=== PATIENT | male | born 1950 | race Caucasian/White ===

== ENCOUNTER 2016-10-30 16:05 | Emergency (ER) | payer BC ==
[2016-10-30 16:52] LABS: BASO % 0.4 % (0.0-1.0); EOS # 0.2 K/mm3 (0.0-0.50); EOS % 3.2 % (0.0-3.0); LARGE UNSTAINED CELL # 0.1 K/mm3 (0.0-0.4); LYMPH # 1.7 K/mm3 (1.5-4.5); LYMPH % 26.7 % (24.0-44.0); MEAN CORPUSCULAR HEMOGLOBIN 31.5 pg (27.0-33.0); MEAN CORPUSCULAR HGB CONC 33.7 g/dl (32.0-36.5); MEAN CORPUSCULAR VOLUME 93.6 fl (80.0-96.0); MONO # 0.4 K/mm3 (0.0-0.8); MONO % 6.7 % (0.0-5.0); NEUTROPHILS # 3.5 K/mm3 (1.8-7.7); NEUTROPHILS % 60.9 % (36.0-66.0); PLATELET COUNT, AUTOMATED 235 k/mm3 (150-450); RED CELL DISTRIBUTION WIDTH 13.5 % (11.5-14.5); WHITE BLOOD COUNT 5.8 K/mm3 (4.0-10.0)
[2016-10-30 17:04] LABS: ALBUMIN 4.3 GM/DL (3.2-5.2); ALBUMIN/GLOBULIN RATIO 1.54 (1.00-1.93); ALKALINE PHOSPHATASE 75 U/L (45-117); ALT/SGPT 41 U/L (12-78); ANION GAP 6 MEQ/L (8-16); AST/SGOT 23 U/L (15-37); BILIRUBIN,DIRECT 0.1 MG/DL (0.0-0.2); BILIRUBIN,TOTAL 0.5 MG/DL (0.2-1.0); BLOOD UREA NITROGEN 13 MG/DL (7-18); CALCIUM LEVEL 8.6 MG/DL (8.8-10.2); CARBON DIOXIDE LEVEL 29 MEQ/L (21-32); CHLORIDE LEVEL 108 MEQ/L (98-107); CREATININE FOR GFR 1.14 MG/DL (0.70-1.30); FREE T4 1.03 NG/DL (0.76-1.46); GLOMERULAR FILTRATION RATE > 60.0 (>49); GLUCOSE, FASTING 80 MG/DL (80-110); MAGNESIUM LEVEL 2.3 MG/DL (1.8-2.4); SODIUM LEVEL 143 MEQ/L (136-145); TOTAL PROTEIN 7.1 GM/DL (6.4-8.2)
--- NOTE | 2016-10-30 17:52 | EDDOCDS ---
Physician Documentation [facility] Name: Phong Luevano Age: 66 yrs Sex: Male : 1950 Arrival Date: 10/30/2016 Time: 16:05 Bed 11 Private MD: NO PRIMARY PHYSICIAN, . Disposition: 10/30 17:41 Critical Care: Critical care not applicable. pc Disposition: 10/30/16 17:43 Patient has left against medical advice. Impression: Palpitations, Atrial premature depolarization. - Patients states they are going to Home/Self Care. - Condition is Unchanged. - Discharge Instructions: Palpitations, AMA. Medication Reconciliation, Local Pharmacy Hours form. Follow up: Private Physician; When: In [place]; Reason: Recheck today's complaints, Continuance of care. - Problem is new. - Symptoms are unchanged. HPI: 16:40 This 66 yrs old Male presents to ER via Walkin/Carried/Asstd with complaints of pc Irregular Pulse. 16:40 The history is obtained from the patient. He has been having "a funny feeling" for 3 pc days. He says his BP was up at a local pharmacy and he as been checking at home, despite not having a history of HTN. He denies chest pain but says he feels a skipped beat at times. He says he had similar complaints 5 years ago and ended up with stents. He is a very vague historian and it is very difficult to get a succinct answer to any question. 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 He drinks 4-5 cups of coffee daily and drinks 2+ glasses of wine nightly. At their worst, the symptoms were mild. In the emergency department, the symptoms are mild. The patient has experienced a previous episode, approximately 5 years ago. The patient has not recently seen a physician. Historical: - Allergies: No known drug Allergies; - Home Meds: 1. atorvastatin oral Unknown oral 2. aspirin 81 mg Oral tab 1 tab once daily - PMHx: Hypercholesterolemia; CAD; - PSHx: Cardiac stents; - The history from nurses notes was reviewed: and elements of the historical information I have obtained differs from that reported to nursing. - Social history: Smoking status: Patient states was never smoker of tobacco. No barriers to communication noted, The patient speaks fluent Vietnamese, Speaks appropriately for age. - Family history: Not pertinent. - : The pt / caregiver states he / she is not on anticoagulants. Home medication list is obtained from the patient. - Hospitalizations: : No recent hospitalization is reported. - Exposure Risk Screening:: None identified. - Immunization history:: All immunizations up-to-date. - Social history:: the patient is a non-smoker, the patient drinks alcohol. ROS: 16:46 All systems are negative except as listed. pc Exam: 16:46 General Appearance: no acute distress, alert. pc 16:46 EENT: normal eye inspection, ears, nose and throat normal, pharynx normal, mucous membranes moist 16:46 Neck: The exam reveals no acute abnormalities. ROM is normal and painless. No nuchal rigidity is noted.. 16:46 Respiratory: no respiratory distress, normal breath sounds. 16:46 CVS: regular pulse rate, regular rhythm, normal S1 and S2, no murmurs, strong peripheral pulses, occasional ectopic beat . 16:46 Abdomen: soft, non-tender, no organomegaly, normal bowel sounds. 16:46 Back: normal inspection. 16:46 Skin: skin color is normal, warm, dry. 16:46 Extremities: The extremities have a grossly normal appearance, are non-tender, without acute ROM abnormalities, no pedal edema. 16:46 Neuro: oriented x 3, cranial nerves normal as tested, no motor deficits, no sensory deficits. 16:46 Psych: normal mood. Vital Signs: 16:07 BP 149 / 73; Pulse 61; Resp 18; Pulse Ox 98% on R/A; Weight 102.06 kg / 225 lbs (R); dem1 Height 6 ft. 0 in. (182.88 cm) (R); 16:15 BP 137 / 86 (auto/); pml 16:18 Pulse 60 MON; Pulse Ox 97% ; pml 16:32 Pulse 58 MON; Pulse Ox 96% ; pml 16:32 BP 123 / 81 (auto/); pml 16:47 Pulse 58 MON; Pulse Ox 95% ; pml 16:47 BP 113 / 75 (auto/); pml 17:17 Pulse 60 MON; Pulse Ox 94% ; pml 17:17 BP 114 / 78 (auto/); pml 17:19 Temp 97.4(O); pml 17:32 Pulse 66 MON; Pulse Ox 95% ; pml 17:32 BP 113 / 76 (auto/); pml 17:51 BP 118 / 83; Pulse 67; Resp 18; Temp 97.4; Pulse Ox 97% on R/A; pml 16:07 Body Mass Index 30.52 (102.06 kg, 182.88 cm) dem1 MDM: 16:13 ECG WITH READING ER PHYS+CARDIAG ordered. EDMS 16:40 Financial Accountant/Pulse Ox/q 30 min VS ordered. pc 16:40 IV Saline Lock ordered. pc 16:40 Rhythm Strip to chart ordered. pc 16:41 Basic Metabolic Profile Ordered. EDMS 16:41 CBC with Diff Ordered. EDMS 16:41 Cardiac Injury Profile Ordered. EDMS 16:41 Troponin Ordered. EDMS 16:41 Magnesium Level Ordered. EDMS 16:41 TSH with Free T4 Ordered. EDMS 16:41 Liver Profile Ordered. EDMS 16:43 portable chest Ordered. EDMS 16:46 Differential Diagnosis: palpitations with PACs noted on monitor, Hx of CAD. Plan: labs, pc EKG, CXR. 16:49 Test interpretation: EKG. pc 17:06 Financial registration complete. zo 17:06 [facility] Payment Agreement was scanned into [employer] and attached to record. zo 17:17 Basic Metabolic Profile Reviewed. pc 17:17 CBC with Diff Reviewed. pc 17:17 Cardiac Injury Profile Reviewed. pc 17:17 Troponin Reviewed. pc 17:17 Magnesium Level Reviewed. pc 17:17 TSH with Free T4 Reviewed. pc 17:17 Liver Profile Reviewed. pc 17:36 Redraw CIP &Troponin (put time in details section) ordered. pc 17:36 Repeat EKG (put time details section) ordered. pc 17:41 Data reviewed: old medical records, vital signs, nurses notes, EKG(s), lab test pc results, all radiology studies and available results. Test interpretation: LAB - all labs as ordered have been reviewed, interpreted and considered in the overall management of the clinical presentation; X-RAY - interpreted by Radiologist and personally reviewed, 1 view chest chronic obstructive pulmonary disease pattern. The patient has been re-examined and re-evaluated. There is no appreciated change of the patient's symptoms at this time, since he left AMA. Disposition: The risks (severe disability/impairment and/or ) and benefits (continued evaluation/treatment of potentially life threatening illness) were explained in detail to the pt/parent/guardian. There is no evidence or suspicion of mental impairment due to drugs, alcohol, brain injury, stroke, dementia, mental delay or medical/psychiatric illness and the pt. is not a minor. The pt. demonstrates capacity/understanding: chose to sign out AMA. EC:49 Rate is 57 beats/min. Rhythm is regular, Sinus bradycardia with 1st degree heart block. pc QRS [place] is Normal. CA interval is prolonged at 211 msec. QRS interval is normal. QT interval is normal. No Q waves. T waves are Inverted in lead III. ST Segment is elevated in leads V2, V3, <1mm. Clinical impression: Sinus bradycardia, Nonspecific ST-T changes, and 1st degree heart block. Signatures: Dispatcher [employer] EDMS Benjamín Barney MD MD pc Kim-Ashcraft, Connie, RN RN ck1 Emmy White Paulina, RN RN pml The chart was reviewed and I authenticate all verbal orders and agree with the evaluation and treatment provided.Corrections: (The following items were deleted from the chart) 16:46 16:40 The history from nurses notes was reviewed and I agree with what is documented. pcpc Attachments: 17:06 [facility] Payment Agreement zo MTDD
--- NOTE | 2016-10-30 17:53 | EDDOCDS ---
Nurse's Notes [facility] Name: Phong Luevano Age: 66 yrs Sex: Male : 1950 Arrival Date: 10/30/2016 Time: 16:05 Bed 11 Private MD: NO PRIMARY PHYSICIAN, . Diagnosis: Palpitations;Atrial premature depolarization Presentation: 10/30 16:08 Presenting complaint: Patient states: Palpitations over the past few days. Denies chest ck1 pain. "I was advised to come in for an EKG by my Doctor friend". Adult Sepsis Screening: The patient does not have new or worsening altered mentation. Patient's respiratory rate is less than 22. Systolic blood pressure is greater than 100. Patient has a qSOFA score of 0- Negative Sepsis Screen. Suicide/Homicide risk assessment- the patient denies having any suicidal and/or homicidal ideations and does not present with any other emotional, behavioral or mental health complaints. 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 Transition of care: patient was not received from another setting of care. 16:08 Acuity: GARCIA Level 3 ck1 16:08 Method Of Arrival: Walkin/Carried/Asstd ck1 16:13 Red Flag criteria, patient assessed and taken directly to a bed. ck1 Triage Assessment: 16:10 General: Appears in no apparent distress, comfortable, Behavior is appropriate for age, ck1 cooperative. Pain: Denies pain. Neurological: Level of Consciousness is awake, alert, obeys commands, Oriented to person, place, time. Cardiovascular: Chest pain is denied. Respiratory: Respiratory effort is unlabored, Respiratory pattern is regular, symmetrical, Denies shortness of breath. GI: Denies nausea, vomiting. Derm: Skin is intact, is healthy with good turgor, Skin is pink, warm & dry. Historical: - Allergies: No known drug Allergies; - Home Meds: 1. atorvastatin oral Unknown oral 2. aspirin 81 mg Oral tab 1 tab once daily - PMHx: Hypercholesterolemia; CAD; - PSHx: Cardiac stents; - The history from nurses notes was reviewed: and elements of the historical information I have obtained differs from that reported to nursing. - Social history: Smoking status: Patient states was never smoker of tobacco. No barriers to communication noted, The patient speaks fluent Setswana, Speaks appropriately for age. - Family history: Not pertinent. - : The pt / caregiver states he / she is not on anticoagulants. Home medication list is obtained from the patient. - Hospitalizations: : No recent hospitalization is reported. - Exposure Risk Screening:: None identified. - Immunization history:: All immunizations up-to-date. - Social history:: the patient is a non-smoker, the patient drinks alcohol. Screenin:24 Screening information is obtained from the patient. Fall risk: No risks identified. pml Assistance ADL's: requires no assistance with activities of daily living. Abuse/DV Screen: The patient / caregiver reports he/she is: not in a situation that causes fear, pain or injury. Nutritional screening: No deficits noted. Advance Directives: Currently, there is no health care proxy. home support is adequate. Assessment: 16:24 General: Appears in no apparent distress, comfortable, Behavior is appropriate for age, pml cooperative. Pain: Location: chest Pain currently is 1 out of 10 on a pain scale. Quality of pain is described as "twinge". Neurological: Level of Consciousness is awake, alert, Oriented to person, place, time. Cardiovascular: Capillary refill < 3 seconds Rhythm is sinus rhythm No ectopy. Cardiovascular: Chest pain began 3-4 days. Respiratory: Airway is patent Respiratory effort is even, unlabored. Respiratory: Denies shortness of breath. GI: Abdomen is non- distended obese. Derm: Skin is pink, warm & dry. 17:49 General: Appears in no apparent distress, Behavior is appropriate for age, cooperative. pml Pain: Location: chest Pain currently is 1 out of 10 on a pain scale. Neurological: Level of Consciousness is awake, alert, Oriented to person, place, time. Cardiovascular: Capillary refill < 3 seconds Rhythm is sinus rhythm No ectopy. Derm: Skin is pink, warm & dry. Vital Signs: 16:07 BP 149 / 73; Pulse 61; Resp 18; Pulse Ox 98% on R/A; Weight 102.06 kg (R); Height 6 ft. dem1 0 in. (182.88 cm) (R); 16:15 BP 137 / 86 (auto/); pml 16:18 Pulse 60 MON; Pulse Ox 97% ; pml 16:32 Pulse 58 MON; Pulse Ox 96% ; pml 16:32 BP 123 / 81 (auto/); pml 16:47 Pulse 58 MON; Pulse Ox 95% ; pml 16:47 BP 113 / 75 (auto/); pml 17:17 Pulse 60 MON; Pulse Ox 94% ; pml 17:17 BP 114 / 78 (auto/); pml 17:19 Temp 97.4(O); pml 17:32 Pulse 66 MON; Pulse Ox 95% ; pml 17:32 BP 113 / 76 (auto/); pml 17:51 BP 118 / 83; Pulse 67; Resp 18; Temp 97.4; Pulse Ox 97% on R/A; pml 16:07 Body Mass Index 30.52 (102.06 kg, 182.88 cm) [facility] Vitals: 16:07 Log In Time: October 30, 2016 at 16:04. RN notified that patient meets [place] [facility] criteria. ED Course: 16:06 Patient visited by Raphael Luz. dem1 16:06 NO PRIMARY PHYSICIAN, . is Private Physician. dem1 16:06 Patient moved to Waiting dem1 16:08 Patient moved to Pre RCE dem1 16:09 Triage Initiated ck1 16:10 Adriana Reyes,RN is Primary Nurse. ck1 16:10 Patient moved to 11 ck1 16:15 Benjamín Barney MD is Attending Physician. pc 16:15 Patient visited by Benjamín Barney MD. pc 16:24 The patient / caregiver is instructed regarding the plan of care and ED course. Patient amber has correct armband on for positive identification. Placed in gown. Bed in low position. Call light in reach. Side rails up X2. residential director on. Pulse ox on. NIBP on. 16:24 Inserted peripheral IV: 18gauge IV in right antecubital area and blood collected. pml Patient tolerated the procedure well. 16:30 EKG done. (by ED staff). Reviewed by Benjamín Barney MD. jrd 16:31 Patient visited by Rory Stack PCA. jrd 17:05 Patient name changed from Phong\\S\\\\S\\Luevano\\S\\ to Phong\\S\\ \\S\\Luevano. EDMS 17:06 [facility] Payment Agreement was scanned into [employer] and attached to record. zo 17:20 Patient visited by Adriana Reyes RN. pml 17:51 Discontinued lock intact, bleeding controlled, pressure dressing applied, No pml redness/swelling at site. No procedures done that require assistance. Order Results: Lab Order: Basic Metabolic Profile; SPEC'M 10/30/16 16:22 Test: GLUCOSE, FASTING; Value: 80; Range: 80-110; Units: MG/DL; Status: F Test: BLOOD UREA NITROGEN; Value: 13; Range: 7-18; Units: MG/DL; Status: F Test: CREATININE FOR GFR; Value: 1.14; Range: 0.70-1.30; Units: MG/DL; Status: F Test: GLOMERULAR FILTRATION RATE; Value: > 60.0; Range: >49; Status: F Test: SODIUM LEVEL; Value: 143; Range: 136-145; Units: MEQ/L; Status: F Test: POTASSIUM SERUM; Value: 4.0; Range: 3.5-5.1; Units: MEQ/L; Status: F Test: CHLORIDE LEVEL; Value: 108; Range: 98-107; Abnormal: Above high normal; Units: MEQ/L; Status: F Test: CARBON DIOXIDE LEVEL; Value: 29; Range: 21-32; Units: MEQ/L; Status: F Test: ANION GAP; Value: 6; Range: 8-16; Abnormal: Below low normal; Units: MEQ/L; Status: F Test: CALCIUM LEVEL; Value: 8.6; Range: 8.8-10.2; Abnormal: Below low normal; Units: MG/DL; Status: F Test Note: ; Units are mL/min/1.73 m2 Chronic Kidney Disease Staging per NKF: Stage I & II GFR >=60 Normal to Mildly Decreased Stage III GFR 30-59 Moderately Decreased Stage IV GFR 15-29 Severely Decreased Stage V GFR <15 Very Little GFR Left ESRD GFR <15 on ARCHITECTURAL TECHNICIAN Lab Order: CBC with Diff; SPEC'M 10/30/16 16:22 Test: WHITE BLOOD COUNT; Value: 5.8; Range: 4.0-10.0; Units: K/mm3; Status: F Test: RED BLOOD COUNT; Value: 4.61; Range: 4.30-6.10; Units: M/mm3; Status: F Test: HEMOGLOBIN; Value: 14.5; Range: 14.0-18.0; Units: g/dl; Status: F Test: HEMATOCRIT; Value: 43.2; Range: 42.0-52.0; Units: %; Status: F Test: MEAN CORPUSCULAR VOLUME; Value: 93.6; Range: 80.0-96.0; Units: fl; Status: F Test: MEAN CORPUSCULAR HEMOGLOBIN; Value: 31.5; Range: 27.0-33.0; Units: pg; Status: F Test: MEAN CORPUSCULAR HGB CONC; Value: 33.7; Range: 32.0-36.5; Units: g/dl; Status: F Test: RED CELL DISTRIBUTION WIDTH; Value: 13.5; Range: 11.5-14.5; Units: %; Status: F Test: PLATELET COUNT, AUTOMATED; Value: 235; Range: 150-450; Units: k/mm3; Status: F Test: NEUTROPHILS %; Value: 60.9; Range: 36.0-66.0; Units: %; Status: F Test: LYMPH %; Value: 26.7; Range: 24.0-44.0; Units: %; Status: F Test: MONO %; Value: 6.7; Range: 0.0-5.0; Abnormal: Above high normal; Units: %; Status: F Test: EOS %; Value: 3.2; Range: 0.0-3.0; Abnormal: Above high normal; Units: %; Status: F Test: BASO %; Value: 0.4; Range: 0.0-1.0; Units: %; Status: F Test: LARGE UNSTAINED CELL %; Value: 2.0; Range: 0.0-4.0; Units: %; Status: F Test: NEUTROPHILS #; Value: 3.5; Range: 1.8-7.7; Units: K/mm3; Status: F Test: LYMPH #; Value: 1.7; Range: 1.5-4.5; Units: K/mm3; Status: F Test: MONO #; Value: 0.4; Range: 0.0-0.8; Units: K/mm3; Status: F Test: EOS #; Value: 0.2; Range: 0.0-0.50; Units: K/mm3; Status: F Test: BASO #; Value: 0.0; Range: 0.0-0.2; Units: K/mm3; Status: F Test: LARGE UNSTAINED CELL #; Value: 0.1; Range: 0.0-0.4; Units: K/mm3; Status: F Lab Order: Cardiac Injury Profile; [facility] 10/30/16 16:22 Test: CPK CREATINE PHOSPHOKINASE; Value: 212; Range: 39-308; Units: U/L; Status: F Test: CK-MB VALUE MASS; Value: 3.2; Range: 0.0-3.6; Units: NG/ML; Status: F Test: MB/CK RELATIVE INDEX; Value: 1.50; Range: < OR =4; Status: F Test Note: ; DIAGNOSIS CRITERIA MMB ng/ml Relative Index (RI) NON-AMI < or = 5 N/A AGUIAR ZONE > 5 < or = 4 AMI > 5 > 4 Lab Order: Troponin; [facility] 10/30/16 Test: TROPONIN I; Value: < 0.02; Range: < 0.10; Units: NG/ML; Status: F Test Note: ; Troponin I Reference Interval for [place] LOCI: 99th Percentile= 0.00-0.045 ng/ml Risk Stratification: <= 0.10 ng/ml Decreased Risk for Adverse Clinical Events. 0.10-1.50 ng/ml Increased Risk for Adverse Clinical Events. Evaluation of additional criterion and/or repeat testing in 2-6 hours is suggested to rule out myocardial damage. >= 1.50 ng/ml Indicative of Myocardial Injury. Lab Order: Magnesium Level; [facility] 10/30/16 16 Test: MAGNESIUM LEVEL; Value: 2.3; Range: 1.8-2.4; Units: MG/DL; Status: F Lab Order: TSH [facility] Free T4[facility] 16: Test: THYROID STIMULATING HORMONE; Value: 2.600; Range: 0.358-3.740; Units: uIU/ML; Status: F Test: FREE T4; Value: 1.03; Range: 0.76-1.46; Units: NG/DL; Status: F Lab Order: Liver Profile; [facility] 10/30/16 16: Test: AST/SGOT; Value: 23; Range: 15-37; Units: U/L; Status: F Test: ALT/SGPT; Value: 41; Range: 12-78; Units: U/L; Status: F Test: ALKALINE PHOSPHATASE; Value: 75; Range: 45-117; Units: U/L; Status: F Test: BILIRUBIN,TOTAL; Value: 0.5; Range: 0.2-1.0; Units: MG/DL; Status: F Test: BILIRUBIN,DIRECT; Value: 0.1; Range: 0.0-0.2; Units: MG/DL; Status: F Test: TOTAL PROTEIN; Value: 7.1; Range: 6.4-8.2; Units: GM/DL; Status: F Test: ALBUMIN; Value: 4.3; Range: 3.2-5.2; Units: GM/DL; Status: F Test: ALBUMIN/GLOBULIN RATIO; Value: 1.54; Range: 1.00-1.93; Status: F Outcome: 17:43 Patient left against medical advice. pc 17:51 Discharge Assessment: Patient awake, alert and oriented x 3. No cognitive and/or pml functional deficits noted. Patient verbalized understanding of disposition instructions. patient administered narcotics - no. The following High Risk Discharge criteria are identified: None. Discharged to home ambulatory. Condition: good Condition: stable. Discharge instructions given to patient, Instructed on discharge instructions, follow up and referral plans. Demonstrated understanding of instructions, Pt was receptive of discharge instructions/ teaching. No special radiology studies were completed. Property sent home with patient. 17:52 Patient left the ED. pml Signatures: Dispatcher [employer] Benjamín Santana MD MD pc Kim-Ashcraft, Connie, RN RN [email or web address] Emmy White Paulina, RN RN Raphael Crespo Joseph, PCA PCA jrd Corrections: (The following items were deleted from the chart) 16:46 16:40 The history from nurses notes was reviewed and I agree with what is documented. pcpc MTDD
--- NOTE | 2016-10-31 06:32 | ECGEPIP ---
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
--- NOTE | 2016-10-31 10:50 | REP ---
AP PORTABLE CHEST: 10/30/2016. Clinical history: Palpitations. No prior study. Findings: Lungs are adequately inflated. There is some minor fibrotic changes in the mid and lower lung zones. No effusion or acute infiltrate. Heart size magnified by portable lordotic technique, but no gross cardiomegaly, vascular redistribution or edema. The aorta is normal for age. There is no widening of the mediastinum. Airway intact. Impression: 1. Hyperinflation with COPD and basilar fibrotic change. No gross cardiomegaly, vascular redistribution or edema. Heart size magnified by portable lordotic technique. Signed by Shaheen Antoine MD 10/31/2016 07:00 P
--- NOTE | 2016-11-01 18:53 | EDDOCDS ---
Physician Documentation [facility] Name: Phong Luevano Age: 66 yrs Sex: Male : 1950 Arrival Date: 10/30/2016 Time: 16:05 Bed 11 Private MD: NO PRIMARY PHYSICIAN, . Disposition: 10/30 17:41 Critical Care: Critical care not applicable. pc Disposition: 10/30/16 17:43 Patient has left against medical advice. Impression: Palpitations, Atrial premature depolarization. - Patients states they are going to Home/Self Care. - Condition is Unchanged. - Discharge Instructions: Palpitations, AMA. Medication Reconciliation, Local Pharmacy Hours form. Follow up: Private Physician; When: In [place]; Reason: Recheck today's complaints, Continuance of care. - Problem is new. - Symptoms are unchanged. HPI: 16:40 This 66 yrs old Male presents to ER via Walkin/Carried/Asstd with complaints of pc Irregular Pulse. 16:40 The history is obtained from the patient. He has been having "a funny feeling" for 3 pc days. He says his BP was up at a local pharmacy and he as been checking at home, despite not having a history of HTN. He denies chest pain but says he feels a skipped beat at times. He says he had similar complaints 5 years ago and ended up with stents. He is a very vague historian and it is very difficult to get a succinct answer to any question. He says he goes to his PCP twice yearly, his [employer] yearly and the [facility] every 1-2 years, all for his cholesterol and CAD, without any issues except "they say I'm still too fat". He drinks 4-5 cups of coffee daily and drinks 2+ glasses of wine nightly. At their worst, the symptoms were mild. In the emergency department, the symptoms are mild. The patient has experienced a previous episode, approximately 5 years ago. The patient has not recently seen a physician. Historical: - Allergies: No known drug Allergies; - Home Meds: 1. atorvastatin oral Unknown oral 2. aspirin 81 mg Oral tab 1 tab once daily - PMHx: Hypercholesterolemia; CAD; - PSHx: Cardiac stents; - The history from nurses notes was reviewed: and elements of the historical information I have obtained differs from that reported to nursing. - Social history: Smoking status: Patient states was never smoker of tobacco. No barriers to communication noted, The patient speaks fluent Croatian, Speaks appropriately for age. - Family history: Not pertinent. - : The pt / caregiver states he / she is not on anticoagulants. Home medication list is obtained from the patient. - Hospitalizations: : No recent hospitalization is reported. - Exposure Risk Screening:: None identified. - Immunization history:: All immunizations up-to-date. - Social history:: the patient is a non-smoker, the patient drinks alcohol. ROS: 16:46 All systems are negative except as listed. pc Exam: 16:46 General Appearance: no acute distress, alert. pc 16:46 EENT: normal eye inspection, ears, nose and throat normal, pharynx normal, mucous membranes moist 16:46 Neck: The exam reveals no acute abnormalities. ROM is normal and painless. No nuchal rigidity is noted.. 16:46 Respiratory: no respiratory distress, normal breath sounds. 16:46 CVS: regular pulse rate, regular rhythm, normal S1 and S2, no murmurs, strong peripheral pulses, occasional ectopic beat . 16:46 Abdomen: soft, non-tender, no organomegaly, normal bowel sounds. 16:46 Back: normal inspection. 16:46 Skin: skin color is normal, warm, dry. 16:46 Extremities: The extremities have a grossly normal appearance, are non-tender, without acute ROM abnormalities, no pedal edema. 16:46 Neuro: oriented x 3, cranial nerves normal as tested, no motor deficits, no sensory deficits. 16:46 Psych: normal mood. Vital Signs: 16:07 BP 149 / 73; Pulse 61; Resp 18; Pulse Ox 98% on R/A; Weight 102.06 kg / 225 lbs (R); dem1 Height 6 ft. 0 in. (182.88 cm) (R); 16:15 BP 137 / 86 (auto/); pml 16:18 Pulse 60 MON; Pulse Ox 97% ; pml 16:32 Pulse 58 MON; Pulse Ox 96% ; pml 16:32 BP 123 / 81 (auto/); pml 16:47 Pulse 58 MON; Pulse Ox 95% ; pml 16:47 BP 113 / 75 (auto/); pml 17:17 Pulse 60 MON; Pulse Ox 94% ; pml 17:17 BP 114 / 78 (auto/); pml 17:19 Temp 97.4(O); pml 17:32 Pulse 66 MON; Pulse Ox 95% ; pml 17:32 BP 113 / 76 (auto/); pml 17:51 BP 118 / 83; Pulse 67; Resp 18; Temp 97.4; Pulse Ox 97% on R/A; pml 16:07 Body Mass Index 30.52 (102.06 kg, 182.88 cm) dem1 MDM: 16:13 ECG WITH READING ER PHYS+CARDIAG ordered. EDMS 16:40 Inspector Watch Train/Pulse Ox/q 30 min VS ordered. pc 16:40 IV Saline Lock ordered. pc 16:40 Rhythm Strip to chart ordered. pc 16:41 Basic Metabolic Profile Ordered. EDMS 16:41 CBC with Diff Ordered. EDMS 16:41 Cardiac Injury Profile Ordered. EDMS 16:41 Troponin Ordered. EDMS 16:41 Magnesium Level Ordered. EDMS 16:41 TSH with Free T4 Ordered. EDMS 16:41 Liver Profile Ordered. EDMS 16:43 portable chest Ordered. EDMS 16:46 Differential Diagnosis: palpitations with PACs noted on monitor, Hx of CAD. Plan: labs, pc EKG, CXR. 16:49 Test interpretation: EKG. pc 17:06 Financial registration complete. zo 17:06 [facility] [place] was [place] into [employer] and attached to record. zo 17:17 Basic Metabolic Profile Reviewed. pc 17:17 CBC with Diff Reviewed. pc 17:17 Cardiac Injury Profile Reviewed. pc 17:17 Troponin Reviewed. pc 17:17 Magnesium Level Reviewed. pc 17:17 TSH with Free T4 Reviewed. pc 17:17 Liver Profile Reviewed. pc 17:36 Redraw CIP &Troponin (put time in details section) ordered. pc 17:36 Repeat EKG (put time details section) ordered. pc 17:41 Data reviewed: old medical records, vital signs, nurses notes, EKG(s), lab test pc results, all radiology studies and available results. Test interpretation: LAB - all labs as ordered have been reviewed, interpreted and considered in the overall management of the clinical presentation; X-RAY - interpreted by Radiologist and personally reviewed, 1 view chest chronic obstructive pulmonary disease pattern. The patient has been re-examined and re-evaluated. There is no appreciated change of the patient's symptoms at this time, since he left AMA. Disposition: The risks (severe disability/impairment and/or ) and benefits (continued evaluation/treatment of potentially life threatening illness) were explained in detail to the pt/parent/guardian. There is no evidence or suspicion of mental impairment due to drugs, alcohol, brain injury, stroke, dementia, mental delay or medical/psychiatric illness and the pt. is not a minor. The pt. demonstrates capacity/understanding: chose to sign out AMA. 11/01 10:30 ECG/EKG was scanned into [employer] and attached to record. 10:31 Refusal of Services was scanned into [employer] and attached to record. EC/11 16:49 Rate is 57 beats/min. Rhythm is regular, Sinus bradycardia with 1st degree heart block. QRS [place] is Normal. NM interval is prolonged at 211 msec. QRS interval is normal. QT interval is normal. No Q waves. T waves are Inverted in lead III. ST Segment is elevated in leads V2, V3, <1mm. Clinical impression: Sinus bradycardia, Nonspecific ST-T changes, and 1st degree heart block. Signatures: Dispatcher [employer] EDMS Benjamín Barney MD MD pc Leia Ball, Reg Reg gb Delisa Irizarry RN RN ck1 Emmy White Paulina,RN RN pml The chart was reviewed and I authenticate all verbal orders and agree with the evaluation and treatment provided.Corrections: (The following items were deleted from the chart) 16:46 16:40 The history from nurses notes was reviewed and I agree with what is documented. pcpc Attachments: 17:06 [facility] [place] zo 11/01 10:30 ECG/EKG Chart Complete MTDD
--- NOTE | 2016-11-01 18:53 | EDDOCDS ---
Nurse's Notes [facility] Name: Karan Armas Age: 66 yrs Sex: Male : 1950 Arrival Date: 10/30/2016 Time: 16:05 Bed 11 Private MD: NO PRIMARY PHYSICIAN, . Diagnosis: Palpitations;Atrial premature depolarization Presentation: 10/30 16:08 Presenting complaint: Patient states: Palpitations over the past few days. Denies chest ck1 pain. "I was advised to come in for an EKG by my Doctor friend". Adult Sepsis Screening: The patient does not have new or worsening altered mentation. Patient's respiratory rate is less than 22. Systolic blood pressure is greater than 100. Patient has a qSOFA score of 0- Negative Sepsis Screen. Suicide/Homicide risk assessment- the patient denies having any suicidal and/or homicidal ideations and does not present with any other emotional, behavioral or mental health complaints. Status: Patient is not a financial services counselor or dependent. Transition of care: patient was not received from another setting of care. 16:08 Acuity: GARCIA Level 3 ck1 16:08 Method Of Arrival: Walkin/Carried/Asstd ck1 16:13 Red Flag criteria, patient assessed and taken directly to a bed. ck1 Triage Assessment: 16:10 General: Appears in no apparent distress, comfortable, Behavior is appropriate for age, ck1 cooperative. Pain: Denies pain. Neurological: Level of Consciousness is awake, alert, obeys commands, Oriented to person, place, time. Cardiovascular: Chest pain is denied. Respiratory: Respiratory effort is unlabored, Respiratory pattern is regular, symmetrical, Denies shortness of breath. GI: Denies nausea, vomiting. Derm: Skin is intact, is healthy with good turgor, Skin is pink, warm & dry. Historical: - Allergies: No known drug Allergies; - Home Meds: 1. atorvastatin oral Unknown oral 2. aspirin 81 mg Oral tab 1 tab once daily - PMHx: Hypercholesterolemia; CAD; - PSHx: Cardiac stents; - The history from nurses notes was reviewed: and elements of the historical information I have obtained differs from that reported to nursing. - Social history: Smoking status: Patient states was never smoker of tobacco. No barriers to communication noted, The patient speaks fluent Kinyarwanda, Speaks appropriately for age. - Family history: Not pertinent. - : The pt / caregiver states he / she is not on anticoagulants. Home medication list is obtained from the patient. - Hospitalizations: : No recent hospitalization is reported. - Exposure Risk Screening:: None identified. - Immunization history:: All immunizations up-to-date. - Social history:: the patient is a non-smoker, the patient drinks alcohol. Screenin:24 Screening information is obtained from the patient. Fall risk: No risks identified. pml Assistance ADL's: requires no assistance with activities of daily living. Abuse/DV Screen: The patient / caregiver reports he/she is: not in a situation that causes fear, pain or injury. Nutritional screening: No deficits noted. Advance Directives: Currently, there is no health care proxy. home support is adequate. Assessment: 16:24 General: Appears in no apparent distress, comfortable, Behavior is appropriate for age, pml cooperative. Pain: Location: chest Pain currently is 1 out of 10 on a pain scale. Quality of pain is described as "twinge". Neurological: Level of Consciousness is awake, alert, Oriented to person, place, time. Cardiovascular: Capillary refill < 3 seconds Rhythm is sinus rhythm No ectopy. Cardiovascular: Chest pain began 3-4 days. Respiratory: Airway is patent Respiratory effort is even, unlabored. Respiratory: Denies shortness of breath. GI: Abdomen is non- distended obese. Derm: Skin is pink, warm & dry. 17:49 General: Appears in no apparent distress, Behavior is appropriate for age, cooperative. pml Pain: Location: chest Pain currently is 1 out of 10 on a pain scale. Neurological: Level of Consciousness is awake, alert, Oriented to person, place, time. Cardiovascular: Capillary refill < 3 seconds Rhythm is sinus rhythm No ectopy. Derm: Skin is pink, warm & dry. Vital Signs: 16:07 BP 149 / 73; Pulse 61; Resp 18; Pulse Ox 98% on R/A; Weight 102.06 kg (R); Height 6 ft. dem1 0 in. (182.88 cm) (R); 16:15 BP 137 / 86 (auto/); pml 16:18 Pulse 60 MON; Pulse Ox 97% ; pml 16:32 Pulse 58 MON; Pulse Ox 96% ; pml 16:32 BP 123 / 81 (auto/); pml 16:47 Pulse 58 MON; Pulse Ox 95% ; pml 16:47 BP 113 / 75 (auto/); pml 17:17 Pulse 60 MON; Pulse Ox 94% ; pml 17:17 BP 114 / 78 (auto/); pml 17:19 Temp 97.4(O); pml 17:32 Pulse 66 MON; Pulse Ox 95% ; pml 17:32 BP 113 / 76 (auto/); pml 17:51 BP 118 / 83; Pulse 67; Resp 18; Temp 97.4; Pulse Ox 97% on R/A; pml 16:07 Body Mass Index 30.52 (102.06 kg, 182.88 cm) [facility] Vitals: 16:07 Log In Time: October 30, 2016 at 16:04. RN notified that patient meets Red Flag [facility] criteria. ED Course: 16:06 Patient visited by Raphael Luz. dem1 16:06 NO PRIMARY PHYSICIAN, . is Private Physician. dem1 16:06 Patient moved to Waiting dem1 16:08 Patient moved to Pre RCE dem1 16:09 Triage Initiated ck1 16:10 Adriana Reyes,RN is Primary Nurse. ck1 16:10 Patient moved to 11 ck1 16:15 Benjamín Barney MD is Attending Physician. pc 16:15 Patient visited by Benjamín Barney MD. pc 16:24 The patient / caregiver is instructed regarding the plan of care and ED course. Patient amber has correct armband on for positive identification. Placed in gown. Bed in low position. Call light in reach. Side rails up X2. manager of sustainability on. Pulse ox on. NIBP on. 16:24 Inserted peripheral IV: 18gauge IV in right antecubital area and blood collected. pml Patient tolerated the procedure well. 16:30 EKG done. (by ED staff). Reviewed by Benjamín Barney MD. jrd 16:31 Patient visited by Rory Stack PCA. jrd 17:05 Patient name changed from Karan\\S\\\\S\\Armas\\S\\ to Karan\\S\\ \\S\\Armas. EDMS 17:06 [facility] [place] was scanned into [employer] and attached to record. zo 17:20 Patient visited by Adriana Reyes RN. pml 17:51 Discontinued lock intact, bleeding controlled, pressure dressing applied, No pml redness/swelling at site. No procedures done that require assistance. 10/31 06:44 EKG-ADULT Returned. EDMS 11:10 portable chest Returned. EDMS 02 10:30 ECG/EKG was scanned into [employer] and attached to record. 10:31 Refusal of Services was scanned into [employer] and attached to record. gb Attachments: 10:31 Refusal of Services gb Order Results: Lab Order: Basic Metabolic Profile; SPEC'M 10/30/16 16:22 Test: GLUCOSE, FASTING; Value: 80; Range: 80-110; Units: MG/DL; Status: F Test: BLOOD UREA NITROGEN; Value: 13; Range: 7-18; Units: MG/DL; Status: F Test: CREATININE FOR GFR; Value: 1.14; Range: 0.70-1.30; Units: MG/DL; Status: F Test: GLOMERULAR FILTRATION RATE; Value: > 60.0; Range: >49; Status: F Test: SODIUM LEVEL; Value: 143; Range: 136-145; Units: MEQ/L; Status: F Test: POTASSIUM SERUM; Value: 4.0; Range: 3.5-5.1; Units: MEQ/L; Status: F Test: CHLORIDE LEVEL; Value: 108; Range: 98-107; Abnormal: Above high normal; Units: MEQ/L; Status: F Test: CARBON DIOXIDE LEVEL; Value: 29; Range: 21-32; Units: MEQ/L; Status: F Test: ANION GAP; Value: 6; Range: 8-16; Abnormal: Below low normal; Units: MEQ/L; Status: F Test: CALCIUM LEVEL; Value: 8.6; Range: 8.8-10.2; Abnormal: Below low normal; Units: MG/DL; Status: F Test Note: ; Units are mL/min/1.73 m2 Chronic Kidney Disease Staging per NKF: Stage I & II GFR >=60 Normal to Mildly Decreased Stage III GFR 30-59 Moderately Decreased Stage IV GFR 15-29 Severely Decreased Stage V GFR <15 Very Little GFR Left ESRD GFR <15 on COMBINATION TECHNICIAN Lab Order: CBC with Diff; SPEC'M 10/30/16 16:22 Test: WHITE BLOOD COUNT; Value: 5.8; Range: 4.0-10.0; Units: K/mm3; Status: F Test: RED BLOOD COUNT; Value: 4.61; Range: 4.30-6.10; Units: M/mm3; Status: F Test: HEMOGLOBIN; Value: 14.5; Range: 14.0-18.0; Units: g/dl; Status: F Test: HEMATOCRIT; Value: 43.2; Range: 42.0-52.0; Units: %; Status: F Test: MEAN CORPUSCULAR VOLUME; Value: 93.6; Range: 80.0-96.0; Units: fl; Status: F Test: MEAN CORPUSCULAR HEMOGLOBIN; Value: 31.5; Range: 27.0-33.0; Units: pg; Status: F Test: MEAN CORPUSCULAR HGB CONC; Value: 33.7; Range: 32.0-36.5; Units: g/dl; Status: F Test: RED CELL DISTRIBUTION WIDTH; Value: 13.5; Range: 11.5-14.5; Units: %; Status: F Test: PLATELET COUNT, AUTOMATED; Value: 235; Range: 150-450; Units: k/mm3; Status: F Test: NEUTROPHILS %; Value: 60.9; Range: 36.0-66.0; Units: %; Status: F Test: LYMPH %; Value: 26.7; Range: 24.0-44.0; Units: %; Status: F Test: MONO %; Value: 6.7; Range: 0.0-5.0; Abnormal: Above high normal; Units: %; Status: F Test: EOS %; Value: 3.2; Range: 0.0-3.0; Abnormal: Above high normal; Units: %; Status: F Test: BASO %; Value: 0.4; Range: 0.0-1.0; Units: %; Status: F Test: LARGE UNSTAINED CELL %; Value: 2.0; Range: 0.0-4.0; Units: %; Status: F Test: NEUTROPHILS #; Value: 3.5; Range: 1.8-7.7; Units: K/mm3; Status: F Test: LYMPH #; Value: 1.7; Range: 1.5-4.5; Units: K/mm3; Status: F Test: MONO #; Value: 0.4; Range: 0.0-0.8; Units: K/mm3; Status: F Test: EOS #; Value: 0.2; Range: 0.0-0.50; Units: K/mm3; Status: F Test: BASO #; Value: 0.0; Range: 0.0-0.2; Units: K/mm3; Status: F Test: LARGE UNSTAINED CELL #; Value: 0.1; Range: 0.0-0.4; Units: K/mm3; Status: F Lab Order: Cardiac Injury Profile; [facility] 16: Test: CPK CREATINE PHOSPHOKINASE; Value: 212; Range: 39-308; Units: U/L; Status: F Test: CK-MB VALUE MASS; Value: 3.2; Range: 0.0-3.6; Units: NG/ML; Status: F Test: MB/CK RELATIVE INDEX; Value: 1.50; Range: < OR =4; Status: F Test Note: ; DIAGNOSIS CRITERIA MMB ng/ml Relative Index (RI) NON-AMI < or = 5 N/A AGUIAR ZONE > 5 < or = 4 AMI > 5 > 4 Lab Order: Troponin; [facility] Test: TROPONIN I; Value: < 0.02; Range: < 0.10; Units: NG/ML; Status: F Test Note: ; Troponin I Reference Interval for [employer] LOCI: 99th Percentile= 0.00-0.045 ng/ml Risk Stratification: <= 0.10 ng/ml Decreased Risk for Adverse Clinical Events. 0.10-1.50 ng/ml Increased Risk for Adverse Clinical Events. Evaluation of additional criterion and/or repeat testing in 2-6 hours is suggested to rule out myocardial damage. >= 1.50 ng/ml Indicative of Myocardial Injury. Lab Order: Magnesium Level; [facility] 16: Test: MAGNESIUM LEVEL; Value: 2.3; Range: 1.8-2.4; Units: MG/DL; Status: F Lab Order: TSH with Free T4; [facility]10/[facility] 16: Test: THYROID STIMULATING HORMONE; Value: 2.600; Range: 0.358-3.740; Units: uIU/ML; Status: F Test: FREE T4; Value: 1.03; Range: 0.76-1.46; Units: NG/DL; Status: F Lab Order: Liver Profile; SPEC'M 10/30/16 16:22 Test: AST/SGOT; Value: 23; Range: 15-37; Units: U/L; Status: F Test: ALT/SGPT; Value: 41; Range: 12-78; Units: U/L; Status: F Test: ALKALINE PHOSPHATASE; Value: 75; Range: 45-117; Units: U/L; Status: F Test: BILIRUBIN,TOTAL; Value: 0.5; Range: 0.2-1.0; Units: MG/DL; Status: F Test: BILIRUBIN,DIRECT; Value: 0.1; Range: 0.0-0.2; Units: MG/DL; Status: F Test: TOTAL PROTEIN; Value: 7.1; Range: 6.4-8.2; Units: GM/DL; Status: F Test: ALBUMIN; Value: 4.3; Range: 3.2-5.2; Units: GM/DL; Status: F Test: ALBUMIN/GLOBULIN RATIO; Value: 1.54; Range: 1.00-1.93; Status: F Radiology Order: EKG-ADULT Test: EKG-ADULT REASON FOR EXAMINATION: palpitations; Stationary ECG Study; [facility] ED; ; Test Date: 2016-10-30; Pat Name: KARAN ARMAS Department:; Room: -; Gender: M 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 There is some minor fibrotic changes; in the mid and lower lung zones. No effusion or acute infiltrate. Heart size; magnified by portable lordotic technique, but no gross cardiomegaly, vascular; redistribution or edema. The aorta is normal for age. There is no widening of; the mediastinum. Airway intact.; ; Impression:; ; 1. Hyperinflation with COPD and basilar fibrotic change. No gross cardiomegaly,; vascular redistribution or edema. Heart size magnified by portable lordotic; technique.; ; ; Signed by; Shaheen Antoine MD 10/31/2016 07:00 P; Outcome: 10/30 17:43 Patient left against medical advice. pc 17:51 Discharge Assessment: Patient awake, alert and oriented x 3. No cognitive and/or pml functional deficits noted. Patient verbalized understanding of disposition instructions. patient administered narcotics - no. The following High Risk Discharge criteria are identified: None. Discharged to home ambulatory. Condition: good Condition: stable. Discharge instructions given to patient, Instructed on discharge instructions, follow up and referral plans. Demonstrated understanding of instructions, Pt was receptive of discharge instructions/ teaching. No special radiology studies were completed. Property sent home with patient. 17:52 Patient left the ED. pml Signatures: Dispatcher [employer] EDMS Benjamín Barney MD MD Leia Ball, Delisa BenjaminRN RN ck1 Emmy White Paulina, RN RN pml Raphael Luz dem1 Rory Stack PCA ASSISTANT LIBRARIAN jrd Corrections: (The following items were deleted from the chart) 16:46 16:40 The history from nurses notes was reviewed and I agree with what is documented. pcpc Chart Complete MTDD
--- NOTE | 2016-11-01 18:53 | EDDOCDS ---
Physician Documentation [facility] Name: Phong Luevano Age: 66 yrs Sex: Male : 1950 Arrival Date: 10/30/2016 Time: 16:05 Bed 11 Private MD: NO PRIMARY PHYSICIAN, . Disposition: 10/30 17:41 Critical Care: Critical care not applicable. pc Disposition: 10/30/16 17:43 Patient has left against medical advice. Impression: Palpitations, Atrial premature depolarization. - Patients states they are going to Home/Self Care. - Condition is Unchanged. - Discharge Instructions: Palpitations, AMA. Medication Reconciliation, Local Pharmacy Hours form. Follow up: Private Physician; When: In [place]; Reason: Recheck today's complaints, Continuance of care. - Problem is new. - Symptoms are unchanged. HPI: 16:40 This 66 yrs old Male presents to ER via Walkin/Carried/Asstd with complaints of pc Irregular Pulse. 16:40 The history is obtained from the patient. He has been having "a funny feeling" for 3 pc days. He says his BP was up at a local pharmacy and he as been checking at home, despite not having a history of HTN. He denies chest pain but says he feels a skipped beat at times. He says he had similar complaints 5 years ago and ended up with stents. He is a very vague historian and it is very difficult to get a succinct answer to any question. He says he goes to his PCP twice yearly, his [facility] yearly and the [facility] every 1-2 years, all for his cholesterol and CAD, without any issues except "they say I'm still too fat". He drinks 4-5 cups of coffee daily and drinks 2+ glasses of wine nightly. At their worst, the symptoms were mild. In the emergency department, the symptoms are mild. The patient has experienced a previous episode, approximately 5 years ago. The patient has not recently seen a physician. Historical: - Allergies: No known drug Allergies; - Home Meds: 1. atorvastatin oral Unknown oral 2. aspirin 81 mg Oral tab 1 tab once daily - PMHx: Hypercholesterolemia; CAD; - PSHx: Cardiac stents; - The history from nurses notes was reviewed: and elements of the historical information I have obtained differs from that reported to nursing. - Social history: Smoking status: Patient states was never smoker of tobacco. No barriers to communication noted, The patient speaks fluent Latvian, Speaks appropriately for age. - Family history: Not pertinent. - : The pt / caregiver states he / she is not on anticoagulants. Home medication list is obtained from the patient. - Hospitalizations: : No recent hospitalization is reported. - Exposure Risk Screening:: None identified. - Immunization history:: All immunizations up-to-date. - Social history:: the patient is a non-smoker, the patient drinks alcohol. ROS: 16:46 All systems are negative except as listed. pc Exam: 16:46 General Appearance: no acute distress, alert. pc 16:46 EENT: normal eye inspection, ears, nose and throat normal, pharynx normal, mucous membranes moist 16:46 Neck: The exam reveals no acute abnormalities. ROM is normal and painless. No nuchal rigidity is noted.. 16:46 Respiratory: no respiratory distress, normal breath sounds. 16:46 CVS: regular pulse rate, regular rhythm, normal S1 and S2, no murmurs, strong peripheral pulses, occasional ectopic beat . 16:46 Abdomen: soft, non-tender, no organomegaly, normal bowel sounds. 16:46 Back: normal inspection. 16:46 Skin: skin color is normal, warm, dry. 16:46 Extremities: The extremities have a grossly normal appearance, are non-tender, without acute ROM abnormalities, no pedal edema. 16:46 Neuro: oriented x 3, cranial nerves normal as tested, no motor deficits, no sensory deficits. 16:46 Psych: normal mood. Vital Signs: 16:07 BP 149 / 73; Pulse 61; Resp 18; Pulse Ox 98% on R/A; Weight 102.06 kg / 225 lbs (R); dem1 Height 6 ft. 0 in. (182.88 cm) (R); 16:15 BP 137 / 86 (auto/); pml 16:18 Pulse 60 MON; Pulse Ox 97% ; pml 16:32 Pulse 58 MON; Pulse Ox 96% ; pml 16:32 BP 123 / 81 (auto/); pml 16:47 Pulse 58 MON; Pulse Ox 95% ; pml 16:47 BP 113 / 75 (auto/); pml 17:17 Pulse 60 MON; Pulse Ox 94% ; pml 17:17 BP 114 / 78 (auto/); pml 17:19 Temp 97.4(O); pml 17:32 Pulse 66 MON; Pulse Ox 95% ; pml 17:32 BP 113 / 76 (auto/); pml 17:51 BP 118 / 83; Pulse 67; Resp 18; Temp 97.4; Pulse Ox 97% on R/A; pml 16:07 Body Mass Index 30.52 (102.06 kg, 182.88 cm) dem1 MDM: 16:13 ECG WITH READING ER PHYS+CARDIAG ordered. EDMS 16:40 Jack Winder/Pulse Ox/q 30 min VS ordered. pc 16:40 IV Saline Lock ordered. pc 16:40 Rhythm Strip to chart ordered. pc 16:41 Basic Metabolic Profile Ordered. EDMS 16:41 CBC with Diff Ordered. EDMS 16:41 Cardiac Injury Profile Ordered. EDMS 16:41 Troponin Ordered. EDMS 16:41 Magnesium Level Ordered. EDMS 16:41 TSH with Free T4 Ordered. EDMS 16:41 Liver Profile Ordered. EDMS 16:43 portable chest Ordered. EDMS 16:46 Differential Diagnosis: palpitations with PACs noted on monitor, Hx of CAD. Plan: labs, pc EKG, CXR. 16:49 Test interpretation: EKG. pc 17:06 Financial registration complete. zo 17:06 [facility] [place] Payment Agreement was scanned into [employer] (formerly [employer]) and attached to record. zo 17:17 Basic Metabolic Profile Reviewed. pc 17:17 CBC with Diff Reviewed. pc 17:17 Cardiac Injury Profile Reviewed. pc 17:17 Troponin Reviewed. pc 17:17 Magnesium Level Reviewed. pc 17:17 TSH with Free T4 Reviewed. pc 17:17 Liver Profile Reviewed. pc 17:36 Redraw CIP &Troponin (put time in details section) ordered. pc 17:36 Repeat EKG (put time details section) ordered. pc 17:41 Data reviewed: old medical records, vital signs, nurses notes, EKG(s), lab test pc results, all radiology studies and available results. Test interpretation: LAB - all labs as ordered have been reviewed, interpreted and considered in the overall management of the clinical presentation; X-RAY - interpreted by Radiologist and personally reviewed, 1 view chest chronic obstructive pulmonary disease pattern. The patient has been re-examined and re-evaluated. There is no appreciated change of the patient's symptoms at this time, since he left AMA. Disposition: The risks (severe disability/impairment and/or ) and benefits (continued evaluation/treatment of potentially life threatening illness) were explained in detail to the pt/parent/guardian. There is no evidence or suspicion of mental impairment due to drugs, alcohol, brain injury, stroke, dementia, mental delay or medical/psychiatric illness and the pt. is not a minor. The pt. demonstrates capacity/understanding: chose to sign out AMA. 11/01 10:30 ECG/EKG was scanned into [employer] (formerly [employer]) and attached to record. 10:31 Refusal of Services was scanned into [employer] and attached to record. EC/11 16:49 Rate is 57 beats/min. Rhythm is regular, Sinus bradycardia with 1st degree heart block. QRS [place] is Normal. [place] interval is prolonged at 211 msec. QRS interval is normal. QT interval is normal. No Q waves. T waves are Inverted in lead III. ST Segment is elevated in leads V2, V3, <1mm. Clinical impression: Sinus bradycardia, Nonspecific ST-T changes, and 1st degree heart block. Signatures: Dispatcher [employer] EDMS Benjamín Barney MD MD pc Leia Ball, Reg Reg gb Delisa Irizarry RN RN [id number] Emmy White Paulina,RN RN pml The chart was reviewed and I authenticate all verbal orders and agree with the evaluation and treatment provided.Corrections: (The following items were deleted from the chart) 16:46 16:40 The history from nurses notes was reviewed and I agree with what is documented. pcpc Attachments: 17:06 [facility] [place] Payment Agreement zo 11/01 10:30 ECG/EKG Chart Complete MTDD
== END 2016-10-30 17:52 | disposition left against medical advice (07) ==
LOC: M ED 16:05
DX: R00.2 Palpitations (principal); I49.1 Atrial premature depolarization; E78.00 Pure hypercholesterolemia, unspecified; I25.10 Atherosclerotic heart disease of native coronary artery without angina pectoris; Z79.82 Long term (current) use of aspirin